=== PATIENT | female | born 1935 | race Caucasian/White ===

== ENCOUNTER 2016-12-05 09:40 | Observation (INO) | payer OTHER ==
[~2016-12-05 09:40] MED LIST: ASPI81TA82 PO; ATOR40TA49 PO; CARV3.125 PO; CEFU1TAB42 PO; CITA10TA4 PO; FERR324T4 PO; FLUT50SP EACH NARE; GUAI600 PO; LACT PO; LEVO88TA2 PO; LISI2.5T3 PO; NITR0.4S SL; OMEP20TA39 PO; PANT40IN3 PO; SYMB160A INH; TRAZ50TA4 PO; ULTR50TA PO
[2016-12-05 09:44] VITALS: BP 141/68; PULSE 71; RESP 18; O2SAT 95
[2016-12-05] MEDS ORDERED: OMEP20TA PO (09:56)
[2016-12-05] MEDS ORDERED: SYMB160A INH (09:56)
[2016-12-05] MEDS ORDERED: TRAZ50TA12 PO (09:56)
[2016-12-05] MEDS ORDERED: CARV3.12 PO (09:56)
[2016-12-05] MEDS ORDERED: FLUT50SP EACH NARE (09:56)
[2016-12-05] MEDS ORDERED: CITA10TA4 PO (09:56)
[2016-12-05] MEDS ORDERED: LISI2.5T3 PO (09:56)
[2016-12-05] MEDS ORDERED: NITR1SUB3 SL (09:56)
[2016-12-05] MEDS ORDERED: ATOR40TA16 PO (09:56)
[2016-12-05] MEDS ORDERED: FERR325T8 PO (09:56)
[2016-12-05] MEDS ORDERED: LEVO88TA2 PO (09:56)
[2016-12-05] MEDS ORDERED: ASPIRIN 81 MG CHEW TAB PO ONE (10:00)
[2016-12-05] MEDS ORDERED: SODIUM CHLORIDE 0.9% FLUSH 10 ML FLUSH IVF PRN (10:00)
--- NOTE | 2016-12-05 10:18 | RADRPT ---
EXAM DATE/TIME: 12/05/2016 09:58 [facility] COMPARISON: CHEST SINGLE AP, November 23, 2015, 12:27. INDICATIONS : Chest pressure. MEDICAL HISTORY : Chronic obstructive pulmonary disease. SURGICAL HISTORY : defibrillator ENCOUNTER: Initial ACUITY: 1 day PAIN SCORE: 0/10 LOCATION: Bilateral chest FINDINGS: Patient position. The lungs are clear. The heart and pulmonary vascularity are normal. CONCLUSION: Pacer, otherwise negative. Juanjo Bower MD FACR on December 05, 2016 at 10:16 Board Certified Radiologist. This report was verified electronically.
[2016-12-05 10:30] LABS: AUTOMATED NEUTROPHIL # 3.7 TH/MM3 (1.8-7.7); BASOPHIL % 0.6 % (0.0-2.0); EOSINOPHIL # 0.3 TH/MM3 (0-0.4); EOSINOPHIL % 4.6 % (0.0-4.0); HEMO FLAGS DIFF FINAL; LYMPH % 28.4 % (9.0-44.0); LYMPHOCYTE # 1.9 TH/MM3 (1.0-4.8); MEAN CELL VOLUME 84.9 FL (80.0-100.0); MEAN CORPUSCULAR HEMOGLOBIN 27.9 PG (27.0-34.0); MEAN CORPUSCULAR HGB CONC 32.9 % (32.0-36.0); MONO % 9.6 % (0.0-8.0); NEUT % 56.8 % (16.0-70.0); PLATELET COUNT 251 TH/MM3 (150-450); RED BLOOD COUNT 3.89 MIL/MM3 (4.00-5.30); RED CELL DISTRIBUTION WIDTH 15.2 % (11.6-17.2); WHITE BLOOD COUNT 6.6 TH/MM3 (4.0-11.0)
[2016-12-05 10:38] LABS: APTT (PATIENT) 27.2 SEC (24.3-30.1); INTERNATIONAL NORMALIZED RATIO 0.9 RATIO; PROTHROMBIN TIME - PATIENT 10.3 SEC (9.8-11.6)
[2016-12-05 11:04] LABS: ANION GAP 9 MEQ/L (5-15); BICARBONATE 22.9 MEQ/L (21.0-32.0); BLOOD UREA NITROGEN 11 MG/DL (7-18); CHLORIDE 106 MEQ/L (98-107); GLOMERULAR FILTRATION RATE 82 ML/MIN (>89); POTASSIUM 3.7 MEQ/L (3.5-5.1); SODIUM (NA) 138 MEQ/L (136-145)
[2016-12-05 11:09] LABS: CREATINE KINASE 33 U/L (26-192)
[2016-12-05 11:39] VITALS: O2SAT 97
--- NOTE | 2016-12-05 11:49 | PD ---
HPI Chief Complaint: Chest Pain Time Seen by Provider: 09:57 Travel History International Travel<30 days: No Contact w/Intl Traveler<30days: No Traveled to known affect area: No History of Present Illness HPI Patient is an 81-year-old female who comes in complaining of chest pain. She says that last night she felt a pressure to the left side of her chest, but it went away in its own. Again today she felt the pressure to the left side of her chest radiating down her left arm. She has a pacemaker defibrillator implanted, and says it has not gone off. She had some shortness of breath and nausea associated with this. She denies cough or cold. She denies fever or chills. She has not had any leg swelling or pain. PFSH Past Medical History Anemia: Yes Blood Disorders: No Anxiety: Yes Depression: No Heart Rhythm Problems: No Cancer: No Cardiac Catheterization: Yes Cardiomyopathy: Yes Cardiovascular Problems: Yes High Cholesterol: Yes Chemotherapy: No Chest Pain: Yes Congestive Heart Failure: Yes COPD: Yes Coronary Artery Disease: Yes Diabetes: No Diminished Hearing: No Endocrine: Yes Gastrointestinal Disorders: No Genitourinary: No Hypertension: Yes Immune Disorder: No Implanted Vascular Access Dvce: No Musculoskeletal: No Neurologic: No Psychiatric: Yes Reproductive: No Respiratory: Yes (pneumonia) Myocardial Infarction: Yes Pneumonia: Yes Radiation Therapy: No Sleep Apnea: No Thyroid Disease: Yes Past Surgical History Cardiac Surgery: Yes (defibilator ) Gynecologic Surgery: Yes (HSYTERECTOMY) Hysterectomy: Yes Pacemaker: Yes (W/DEFIB) Other Surgery: Yes (hysterectomy,cardiac cath x 2) Social History Alcohol Use: No Tobacco Use: No (QUIT DECEMBER 2014 ) Substance Use: No Allergies-Medications (Allergen,Severity, Reaction): Coded Allergies: *MDRO Multi-Drug Resistant Organism (Verified Adverse Reaction, Unknown, ) ESBL+E.Coli (urine) 06/2015 Reported Meds & Prescriptions Reported Meds & Active Scripts Active Ceftin (Cefuroxime Axetil) 250 Mg Tab 250 Mg PO BID 8 Days Reported Trazodone (Trazodone HCl) 50 Mg Tab 50 Mg PO HS Omeprazole 20 Mg Tab 20 Mg PO DAILY Nitroglycerin SL (Nitroglycerin) 0.4 Mg Subl 0.4 Mg SL DIRECTED PRN ONE TABLET UNDER THE TONGUE NEEDED FOR CHEST PAIN, MAY REPEAT EVERY FIVE MINUTES FOR A TOTAL OF 3 DOSES OR CALL 911 IF NO RELIEF Lisinopril 2.5 Mg Tab 2.5 Mg PO DAILY Levothyroxine (Levothyroxine Sodium) 88 Mcg Tab 88 Mcg PO DAILY Fluticasone Nasal [place] 50 Mcg/Act Naspr 50 Mcg EACH NARE BID 50 mcg/spray Ferrous Sulfate 325 Mg (65 Mg Iron) Tablet 325 Mg PO DAILY Citalopram (Citalopram Hydrobromide) 10 Mg Tab 10 Mg PO DAILY Carvedilol 3.125 Mg Tab 3.125 Mg PO BID Symbicort Inh (Budesonide/Formoterol Fumarate) 160-4.5 Mcg/Act Aero 1 Puff INH Q12HR Atorvastatin (Atorvastatin Calcium) 40 Mg Tab 40 Mg PO HS Review of Systems Except as stated in HPI: all other systems reviewed are Neg General / Constitutional: No: Fever, Chills HENT: No: Headaches, Lightheadedness Cardiovascular: Positive: Chest Pain or Discomfort Respiratory: Positive: Shortness of Breath Gastrointestinal: Positive: Nausea, No: Vomiting, Abdominal Pain Genitourinary: No: Dysuria Musculoskeletal: No: Myalgias, Edema Skin: No Rash, No Change in Pigmentation Neurologic: No: Weakness, Dizziness Physical Exam Narrative GENERAL: Awake and alert, in no acute distress. SKIN: Focused skin assessment warm/dry. HEAD: Atraumatic. Normocephalic. EYES: Pupils equal and round. No scleral icterus. ENT: Mucous membranes pink and moist. NECK: Trachea midline. No JVD. CARDIOVASCULAR: Regular rate and rhythm. No murmur appreciated. RESPIRATORY: No accessory muscle use. Clear to auscultation. Breath sounds equal bilaterally. GASTROINTESTINAL: Abdomen soft, non-tender, nondistended. MUSCULOSKELETAL: No obvious deformities. No clubbing. No cyanosis. No edema. NEUROLOGICAL: Awake and alert. No obvious cranial nerve deficits. Motor grossly within normal limits. Normal speech. PSYCHIATRIC: Appropriate mood and affect; insight and judgment normal. Data Data Last Documented VS Vital Signs Date Time Temp Pulse Resp B/P (MAP) Pulse Ox O2 Delivery O2 Flow Rate FiO2 12/05/16 11:39 97 Nasal Cannula 2.00 12/05/16 09:47 73 18 12/05/16 09:44 141/68 (92) Orders Orders Electrocardiogram (12/05/16 09:57) Basic Metabolic Panel (Bmp) (12/05/16 09:57) Ckmb (Isoenzyme) Profile (12/05/16 09:57) Complete Blood Count With Diff (12/05/16 09:57) Prothrombin Time / Inr (Pt) (12/05/16 09:57) Act Partial Throm Time (Ptt) (12/05/16 09:57) Troponin I (12/05/16 09:57) Chest, Single Ap (12/05/16 09:57) Ecg Monitoring (12/05/16 09:57) Bilateral Bp Monitoring (12/05/16 09:57) Iv Access Insert/Monitor (12/05/16 09:57) Oximetry (12/05/16 09:57) Oxygen Administration (12/05/16 09:57) Aspirin Chew (Aspirin Chew) (12/05/16 10:00) Sodium Chloride 0.9% Flush (Ns Flush) (12/05/16 10:00) Labs Laboratory Tests Test 12/05/16 09:57 12/05/16 10:08 Prothrombin Time 10.3 SEC Prothromb Time International Ratio 0.9 RATIO Activated Partial Thromboplast Time 27.2 SEC White Blood Count 6.6 TH/MM3 Red Blood Count 3.89 MIL/MM3 Hemoglobin 10.9 GM/DL Hematocrit 33.0 % Mean Corpuscular Volume 84.9 FL Mean Corpuscular Hemoglobin 27.9 PG Mean Corpuscular Hemoglobin Concent 32.9 % Red Cell Distribution Width 15.2 % Platelet Count 251 TH/MM3 Mean Platelet Volume 7.4 FL Neutrophils (%) (Auto) 56.8 % Lymphocytes (%) (Auto) 28.4 % Monocytes (%) (Auto) 9.6 % Eosinophils (%) (Auto) 4.6 % Basophils (%) (Auto) 0.6 % Neutrophils # (Auto) 3.7 TH/MM3 Lymphocytes # (Auto) 1.9 TH/MM3 Monocytes # (Auto) 0.6 TH/MM3 Eosinophils # (Auto) 0.3 TH/MM3 Basophils # (Auto) 0.0 TH/MM3 CBC Comment DIFF FINAL Differential Comment Blood Urea Nitrogen 11 MG/DL Creatinine 0.69 MG/DL Random Glucose 115 MG/DL Calcium Level 8.9 MG/DL Sodium Level 138 MEQ/L Potassium Level 3.7 MEQ/L Chloride Level 106 MEQ/L Carbon Dioxide Level 22.9 MEQ/L Anion Gap 9 MEQ/L Estimat Glomerular Filtration Rate 82 ML/MIN Total Creatine Kinase 33 U/L Troponin I LESS THAN 0.02 NG/ML MDM Medical Decision Making Medical Screen Exam Complete: Yes Emergency Medical Condition: Yes Medical Record Reviewed: Yes Interpretation(s) ECG shows a paced rhythm Differential Diagnosis ACS versus NSTEMI versus STEMI Narrative Course Patient is an 81-year-old female who comes in complaining of chest pain. Exam shows no acute abnormal maladies. IV established, labs sent. Patient connected to the bus driver/monitor. Patient was given nitroglycerin by EMS, with relief of her symptoms. Labs show no acute abnormalities, first troponin is negative. Patient was given a dose of aspirin. Patient will be placed in chest pain center for further management. Diagnosis Primary Impression: Chest pain Qualified Codes: R07.9 - Chest pain, unspecified Admitting Information Admitting Physician Requests: Margaux Smith MD Dec 05, 2016 11:49
[2016-12-05 11:56] VITALS: BP 161/70; PULSE 67; RESP 20; O2SAT 97
--- NOTE | 2016-12-05 13:24 | HHI.HP ---
HPI Primary Care Physician Dr Molina Chief Complaint CHEST PRESSURE History of Present Illness 81 YO lady with past history of sudden and AICD in 1999 with a CATH showing only mild to moderate occlusion not C/O new chest pain. Onset: Chest pain began yesterday morning lasted about 5 minutes and resolved recurring again this morning. Character: Pressure Location: Left upper chest Severity: 8/10 Radiation: To L arm with a pressure like sensation over the anterior arm Duration: less than 5 minutes Associated Symptoms: None Precipitating or Relieving Factors: None Review of Systems Consitutional: COMPLAINS OF: Fatigue, Fever, Chills, Weight gain, Weight loss Eyes: COMPLAINS OF: Amaurosis Fugax, Change in vision HEENT: COMPLAINS OF: Lightheadedness, Change in hearing Cardiovascular: COMPLAINS OF: Chest pain Musculoskeletal: COMPLAINS OF: Joint pain Cataract L eye with dec vision Loss of ultrasound technol both hands due to joint pain Past Family Social History Allergies: Coded Allergies: *MDRO Multi-Drug Resistant Organism (Verified Adverse Reaction, Unknown, ) ESBL+E.Coli (urine) 06/2015 Past Medical History AICD implanted by Dr. Harding 35% EF by CATH mild CAD by CATH Past Surgical History AICD Hysterectomy Reported Medications Reported Meds & Active Scripts Active Ceftin (Cefuroxime Axetil) 250 Mg Tab 250 Mg PO BID 8 Days Reported Trazodone (Trazodone HCl) 50 Mg Tab 50 Mg PO HS Omeprazole 20 Mg Tab 20 Mg PO DAILY Nitroglycerin SL (Nitroglycerin) 0.4 Mg Subl 0.4 Mg SL DIRECTED PRN ONE TABLET UNDER THE TONGUE NEEDED FOR CHEST PAIN, MAY REPEAT EVERY FIVE MINUTES FOR A TOTAL OF 3 DOSES OR CALL 911 IF NO RELIEF Lisinopril 2.5 Mg Tab 2.5 Mg PO DAILY Levothyroxine (Levothyroxine Sodium) 88 Mcg Tab 88 Mcg PO DAILY Fluticasone Nasal [place] 50 Mcg/Act Naspr 50 Mcg EACH NARE BID 50 mcg/spray Ferrous Sulfate 325 Mg (65 Mg Iron) Tablet 325 Mg PO DAILY Citalopram (Citalopram Hydrobromide) 10 Mg Tab 10 Mg PO DAILY Carvedilol 3.125 Mg Tab 3.125 Mg PO BID Symbicort Inh (Budesonide/Formoterol Fumarate) 160-4.5 Mcg/Act Aero 1 Puff INH Q12HR Atorvastatin (Atorvastatin Calcium) 40 Mg Tab 40 Mg PO HS Active Ordered Medications Current Medications Medications (Trade) Dose Ordered Sig/Yesika Route Start Time Stop Time Status Last Admin (NS Flush) 2 ml UNSCH PRN IVF 12/05/16 10:00 Family History Father of colon cancer Mother of a CVA 13 Sibs with 5 brothers and 8 sisters Social History Greater than 50 PPY hx of tobacco abuse with DC in 2015 No ETOH No illicit drugs Physical Exam Vital Signs Vital Signs Date Time Temp Pulse Resp B/P (MAP) Pulse Ox O2 Delivery O2 Flow Rate FiO2 12/05/16 11:56 67 20 161/70 (100) 97 2.00 12/05/16 11:39 97 Nasal Cannula 2.00 12/05/16 11:39 97 Nasal Cannula 2.00 12/05/16 09:47 73 18 98 Nasal Cannula 2.00 12/05/16 09:44 71 18 141/68 (92) 95 Physical Exam GENERAL: WNWD slightly obese resting comfortably SKIN: Warm and dry. Some purpura on arms HEAD: Atraumatic. Normocephalic. EYES: Pupils equal and round. No scleral icterus. No injection or drainage. IOL on R cataract on L ENT: No nasal bleeding or discharge. Mucous membranes pink and moist. Edentulous NECK: Trachea midline. No JVD. CHEST: Pacer L, decreased BS but clear CARDIOVASCULAR: Regular rate and rhythm. Paced rate No GRM RESPIRATORY: No accessory muscle use. Clear to auscultation. Breath sounds equal bilaterally. GASTROINTESTINAL: Abdomen soft, non-tender, nondistended. Hepatic and splenic margins not palpable. MUSCULOSKELETAL: Extremities without clubbing, cyanosis, or edema. No obvious deformities. NEUROLOGICAL: Awake and alert. No obvious cranial nerve deficits. Motor grossly within normal limits. Five out of 5 muscle strength in the arms and legs but weak ultrasound technol due to arthritis. Normal speech. PSYCHIATRIC: Appropriate mood and affect; insight and judgment normal. Laboratory Laboratory Tests Test 12/05/16 09:57 12/05/16 10:08 Prothrombin Time 10.3 Prothromb Time International Ratio 0.9 Activated Partial Thromboplast Time 27.2 White Blood Count 6.6 Red Blood Count 3.89 Hemoglobin 10.9 Hematocrit 33.0 Mean Corpuscular Volume 84.9 Mean Corpuscular Hemoglobin 27.9 Mean Corpuscular Hemoglobin Concent 32.9 Red Cell Distribution Width 15.2 Platelet Count 251 Mean Platelet Volume 7.4 Neutrophils (%) (Auto) 56.8 Lymphocytes (%) (Auto) 28.4 Monocytes (%) (Auto) 9.6 Eosinophils (%) (Auto) 4.6 Basophils (%) (Auto) 0.6 Neutrophils # (Auto) 3.7 Lymphocytes # (Auto) 1.9 Monocytes # (Auto) 0.6 Eosinophils # (Auto) 0.3 Basophils # (Auto) 0.0 CBC Comment DIFF FINAL Differential Comment Blood Urea Nitrogen 11 Creatinine 0.69 Random Glucose 115 Calcium Level 8.9 Sodium Level 138 Potassium Level 3.7 Chloride Level 106 Carbon Dioxide Level 22.9 Anion Gap 9 Estimat Glomerular Filtration Rate 82 Total Creatine Kinase 33 Troponin I LESS THAN 0.02 Result Diagram: 12/05/16 1008 12/05/16 1008 Caprini VTE Risk Assessment Caprini VTE Risk Assessment: Mod/High Risk (score >= 2) Caprini Risk Assessment Model Point Value = 1 Point Value = 2 Point Value = 3 Point Value = 5 Age 41-60 Minor surgery BMI > 25 kg/m2 Swollen legs Varicose veins or History of unexplained or recurrent spontaneous Oral contraceptives or hormone replacement Sepsis (< 1 month) Serious lung disease, including pneumonia (< 1 month) Abnormal pulmonary function Acute myocardial infarction Congestive heart failure (< 1 month) History of inflammatory bowel disease Medical patient at bed rest Age 61-74 Arthroscopic surgery Major open surgery (> 45 min) Laparoscopic surgery (> 45 min) Malignancy Confined to bed (> 72 hours) Immobilizing plaster cast Central venous access Age >= 75 History of VTE Family history of VTE Factor V Leiden Prothrombin [id number] Lupus anticoagulant Anticardiolipin antibodies Elevated serum homocysteine Heparin-induced thrombocytopenia Other congenital or acquired thrombophilia Stroke (< 1 month) Elective arthroplasty Hip, pelvis, or leg fracture Acute spinal cord injury (< 1 month) Prophylaxis Regimen Total Risk Factor Score Risk Level Prophylaxis Regimen 0-1 Low Early ambulation 2 Moderate Order ONE of the following: *Sequential Compression Device (SCD) *Heparin 5000 units SQ BID 3-4 Higher Order ONE of the following medications: *Heparin 5000 units SQ TID *Enoxaparin/Lovenox 40 mg SQ daily (WT < 150 kg, CrCl > 30 mL/min) *Enoxaparin/Lovenox 30 mg SQ daily (WT < 150 kg, CrCl > 10-29 mL/min) *Enoxaparin/Lovenox 30 mg SQ BID (WT < 150 kg, CrCl > 30 mL/min) AND/OR *Sequential Compression Device (SCD) 5 or more Highest Order ONE of the following medications: *Heparin 5000 units SQ TID (Preferred with Epidurals) *Enoxaparin/Lovenox 40 mg SQ daily (WT < 150 kg, CrCl > 30 mL/min) *Enoxaparin/Lovenox 30 mg SQ daily (WT < 150 kg, CrCl > 10-29 mL/min) *Enoxaparin/Lovenox 30 mg SQ BID (WT < 150 kg, CrCl > 30 mL/min) AND *Sequential Compression Device (SCD) Assessment and Plan Problem List: (1) HTN (hypertension) ICD Codes: I10 - Essential (primary) hypertension Status: Chronic (2) Chest pain ICD Codes: R07.9 - Chest pain, unspecified Status: Acute (3) Cardiomyopathy ICD Codes: I42.9 - Cardiomyopathy, unspecified Status: Chronic (4) Hypertension ICD Codes: I10 - Essential (primary) hypertension Status: Chronic (5) Hyperlipidemia ICD Codes: E78.5 - Hyperlipidemia, unspecified Status: Acute Problem Qualifiers (1) HTN (hypertension): Qualified Codes: I10 - Essential (primary) hypertension (2) Chest pain: Qualified Codes: R07.9 - Chest pain, unspecified (3) Cardiomyopathy: Qualified Codes: I42.9 - Cardiomyopathy, unspecified (4) Hypertension: Qualified Codes: I10 - Essential (primary) hypertension (5) Hyperlipidemia: Qualified Codes: E78.2 - Mixed hyperlipidemia Sean Nur MD Dec 05, 2016 13:24
[2016-12-05] MEDS ORDERED: MORPHINE SULFATE 4 MG/ML INJ IV PUSH PRN (13:45)
[2016-12-05] MEDS ORDERED: NITROGLYCERIN 0.4 MG SL 25 TABS/BTL SL PRN (13:45)
[2016-12-05] MEDS ORDERED: PILL SPLITTER OTHER PRN (13:45)
[2016-12-05] MEDS ORDERED: ACETAMINOPHEN 500 MG CPLT PO PRN (13:45)
--- NOTE | 2016-12-05 14:15 | EKG ---
Date Performed: 12/05/2016 Time Performed: 09:57:22 PTAGE: 81 years EKG: ELECTRONIC ATRIAL PACEMAKER ELECTRONIC VENTRICULAR PACEMAKER ABNORMAL RHYTHM ECG NO PREVIOUS TRACING DOCTOR: Hiram Devlin Interpretating Date/Time 12/05/2016 14:15:12
[2016-12-05 14:27] LABS: CREATINE KINASE 60 U/L (26-192)
[2016-12-05] MEDS ORDERED: REGADENOSON INJ 0.4 MG/5 ML SYR ONE (14:33)
--- NOTE | 2016-12-05 16:28 | RADRPT ---
EXAM DATE/TIME: 12/05/2016 14:25 [facility] COMPARISON: No previous studies available for comparison. INDICATIONS : Angina. DOSE: 25.7 mCi Tc99m Myoview at stress. 8.6 mCi Tc99m Myoview at rest. 0.4 mg Lexiscan STRESS SYMPTOMS: Chest pressure, hot feeling in the head, shortness of breath. EJECTION FRACTION: 48% MEDICAL HISTORY : Congestive hearrt failure. Myocardial infarction. Hypertension. SURGICAL HISTORY : Hysterectomy. Defibrillator. ENCOUNTER: Initial ACUITY: 1 day PAIN SCALE: 4/10 LOCATION: Left chest TECHNIQUE: The patient underwent pharmacologic stress with infusion of prescribed dose. Continuous ECG tracing was monitored during stress. Gated SPECT imaging was performed after stress and conventional SPECT i maging was performed at rest. The examination was performed on a SPECT/CT scanner, both attenuation and non-corrected datasets were reviewed. FINDINGS: DISTRIBUTION: The maximum perfused segment at stress is in the anterior lateral wall PERFUSION STUDY: The pattern of perfusion at stress is within normal limits. GATED STUDY: There is intact wall motion and thickening without hypokinetic or dyskinetic segments. CONCLUSION: Negative for stress-induced ischemia. Mildly depressed ejection fraction 48%. Ventricular cavity is mildly dilated.. RISK CATEGORY: Low (<1% Annual Mortality Rate) Juanjo Bower MD FACR on December 05, 2016 at 16:25 Board Certified Radiologist. This report was verified electronically.
--- NOTE | 2016-12-05 16:45 | HHI.DCPOC ---
Discharge Care Plan Diagnosis: (1) Chest pain (2) Cardiomyopathy (3) Hypertension (4) Hyperlipidemia Goals to Promote Your Health * To prevent worsening of your condition and complications * To maintain your health at the optimal level Directions to Meet Your Goals Take your medications as prescribed Follow your dietary instruction Follow activity as directed Keep your appointments as scheduled Take your immunizations and boosters as scheduled If your symptoms worsen call your PCP, if no PCP go to Urgent Care Center or Emergency Room Smoking is Dangerous to Your Health. Avoid second hand smoke Call the 24-hour hour crisis hotline for domestic abuse at Dieudonne Marshall Dec 05, 2016 16:45
[2016-12-05 17:15] LABS: CREATINE KINASE 40 U/L (26-192)
[2016-12-05] MEDS ORDERED: ATORVASTATIN 40 MG TAB PO SCH (21:00)
[2016-12-05] MEDS ORDERED: TEMAZEPAM 15 MG CAP PO PRN (21:00)
[2016-12-05] MEDS ORDERED: CEFUROXIME AXETIL 250 MG TAB PO SCH (21:00)
[2016-12-06] MEDS ORDERED: CITALOPRAM HYDROBROMIDE 20 MG TAB PO SCH (09:00)
[2016-12-06] MEDS ORDERED: CARVEDILOL 3.125 MG TAB PO SCH (09:00)
--- NOTE | 2016-12-06 09:38 | EKG ---
Date Performed: 12/05/2016 Time Performed: 13:52:10 PTAGE: 81 years EKG: ELECTRONIC ATRIAL PACEMAKER ELECTRONIC VENTRICULAR PACEMAKER ABNORMAL RHYTHM ECG WARNING: D PEDRO QUALITY MAY AFFECT INTERPRETATION PREVIOUS TRACING : 12/05/2016 09.57 DOCTOR: Sean Nur Interpretating Date/Time 12/06/2016 09:36:49
--- NOTE | 2016-12-06 09:43 | TR ---
Date Performed: 12/05/2016 Time Performed: 15:13:47 DOCTOR: Sean Nur DRUG LIST: CLINICAL HISTORY: ANGINA REASON FOR TEST: REASON FOR ENDING: OBSERVATION: CONCLUSION: Lexiscan stress test was performed under standard four minute protocol. Radionuclide was injected one minute prior to ending the test. Non specific ST-T changes noted but no electrocard iographic abormalities were present which were diagnostic of ischemia. Nuclear imaging and interpreta tion are pending. COMMENTS:
== END 2016-12-05 17:28 | disposition home or self-care (01) ==
LOC: NEPC 09:40 → NEDA 11:45 → NEPGCP 13:50
PROVIDERS: ADMIT Internal Medicine Interventional Cardiology; ATTEND Internal Medicine Interventional Cardiology
DX: R07.9 Chest pain, unspecified (principal); I25.10 Atherosclerotic heart disease of native coronary artery without angina pectoris; I11.0 Hypertensive heart disease with heart failure; I50.9 Heart failure, unspecified; E78.2 Mixed hyperlipidemia; J44.9 Chronic obstructive pulmonary disease, unspecified; I25.2 Old myocardial infarction; F41.9 Anxiety disorder, unspecified; R94.31 Abnormal electrocardiogram [ECG] [EKG]; Z95.0 Presence of cardiac pacemaker; Z95.810 Presence of automatic (implantable) cardiac defibrillator; Z79.899 Other long term (current) drug therapy; Z87.891 Personal history of nicotine dependence
CPT/HCPCS: 71010; 78452; 80048; 82550; 84484; 85025; 85610; 85730; 93005; 93017; 99285; A9502; G0378; J2785